=== PATIENT | female | born 1995 | race African-American/Black ===

== ENCOUNTER 2017-07-29 17:18 | Emergency (ER) | payer OTHER ==
[2017-07-29 17:23] VITALS: BP 129/70; PULSE 90; TEMP 98.2; BMI 33.6
== END 2017-07-29 18:10 | disposition left against medical advice (07) ==
LOC: JER 17:18
DX: Z53.21 Procedure and treatment not carried out due to patient leaving prior to being seen by health care provider (principal)
CPT/HCPCS: 99282-25

== ENCOUNTER 2018-06-05 01:26 | Emergency (ER) | payer SELFPAY ==
[2018-06-05 01:48] VITALS: BP 104/72; PULSE 77; TEMP 98.4; BMI 34.0
--- NOTE | 2018-06-05 02:38 | PDOC ---
History of Present Illness - General Chief Complaint: Pain, Acute Stated Complaint: ABDOMINAL PAIN Time Seen by Provider: 06/05/18 01:31 History Source: Patient Exam Limitations: No Limitations - History of Present Illness Travel History: No Initial Comments: 06/05/18 02:35 Best Contact: PCP: "I don't have one" Pmhx: N/A Pshx: N/A Allergies: NKDA FH:0 Social Hx: Cigarettes/ 0 Alcohol/ 0 Drugs/0 LMP:05/16/2018 22-year-old female presents to the ER complaining of right upper quadrant pain. Pain is described as 6/10 dull nonradiating intermittent discomfort without nausea/vomiting, fever/chills/diarrhea, chest pain, neck/back pains, flank pains , urinary symptoms. Pain is exacerbated after eating and alleviated at rest over time. No history of similar symptoms Past History - Past Medical History Allergies/Adverse Reactions: Allergies Allergy/AdvReac Type Severity Reaction Status Date / Time No Known Allergies Allergy Verified 06/05/18 01:45 Home Medications: Ambulatory Orders NK [No Known Home Medication] 07/29/17 Asthma: No Cancer: No Cardiac Disorders: No Diabetes: No HTN: No Seizures: No Thyroid Disease: No - Suicide/Smoking/Psychosocial Hx Smoking History: Never smoked Have you smoked in the past 12 months: No Number of Cigarettes Smoked Daily: 20 Information on smoking cessation initiated: No 'Breaking Loose' booklet given: 07/29/17 Hx Alcohol Use: No Drug/Substance Use Hx: No Substance Use Type: None Hx Substance Use Treatment: No Review of Systems - Review of Systems Able to Perform ROS?: Yes Comments:: 06/05/18 02:37 CONSTITUTIONAL: Absent: fever, chills, diaphoresis, generalized weakness, malaise, loss of appetite HEENT: Absent: rhinorrhea, nasal congestion, throat pain, throat swelling, difficulty swallowing, mouth swelling, ear pain, eye pain, visual Changes CARDIOVASCULAR: Absent: chest pain, loss of consciousness, palpitations, irregular heart rate, peripheral edema RESPIRATORY: Absent: cough, shortness of breath, dyspnea with exertion, orthopnea, wheezing, stridor, hemoptysis GASTROINTESTINAL: +RUQ pain Absent: abdominal distension, nausea, vomiting, diarrhea, constipation, melena , hematochezia GENITOURINARY: Absent: dysuria, frequency, urgency, hesitancy, hematuria, flank pain, genital pain MUSCULOSKELETAL: Absent: myalgia, arthralgia, joint swelling SKIN: Absent: rash, itching, pallor HEMATOLOGIC/IMMUNOLOGIC: Absent: easy bleeding, easy bruising, lymphadenopathy, frequent infections ENDOCRINE: Absent: unexplained weight gain, unexplained weight loss, heat intolerance, cold intolerance NEUROLOGIC: Absent: headache, focal weakness or paresthesias, dizziness, unsteady gait, seizure, mental status changes, bladder or bowel incontinence PSYCHIATRIC: Absent: anxiety, depression, suicidal or homicidal ideation, hallucinations. Is the patient limited Occitan proficient: No *Physical Exam - Vital Signs Last Vital Signs Temp Pulse Resp BP Pulse Ox 98.4 F 77 20 104/72 99 06/05/18 01:45 06/05/18 01:45 06/05/18 01:45 06/05/18 01:45 06/05/18 01:45 - Physical Exam Comments: 06/05/18 02:37 GENERAL: Well developed, well nourished. Awake and alert. No acute distress. HEENT: Normocephalic, atraumatic. PERRLA, EOMI. No conjunctival pallor. Sclera are non- icteric. Moist mucous membranes. Oropharynx is clear. NECK: Supple. Full ROM. No JVD. Carotid pulses 2+ and symmetric, without bruits. No thyromegaly. No lymphadenopathy. CARDIOVASCULAR: Regular rate and rhythm. No murmurs, rubs, or gallops. Distal pulses are 2+ and symmetric. PULMONARY: No evidence of respiratory distress. Lungs clear to auscultation bilaterally. No wheezing, rales or rhonchi. ABDOMINAL: RUQ pain/ +,murphys Soft. Non-distended. No rebound or guarding. No organomegaly. Normoactive bowel sounds. MUSCULOSKELETAL Normal range of motion at all joints. No bony deformities or tenderness. No CVA tenderness. EXTREMITIES: No cyanosis. No clubbing. No edema. No calf tenderness. SKIN: Warm and dry. Normal capillary refill. No rashes. No jaundice. NEUROLOGICAL: Alert, awake, appropriate. Cranial nerves 2-12 intact. No deficits to light touch and temperature in face, upper extremities and lower extremities. No motor deficits in the in face, upper extremities and lower extremities. Normoreflexic in the upper and lower extremities. Normal speech. Toes are down- going bilaterally. Gait is normal without ataxia. PSYCHIATRIC: Cooperative. Good eye contact. Appropriate mood and affect. ED Treatment Course - LABORATORY CBC & Chemistry Diagram: 06/05/18 02:43 06/05/18 02:43 - RADIOLOGY Radiology Studies Ordered: Category Date Time Status ABDOMEN US -LIMITED [US] Stat Ultrasound 06/05/18 01:48 Taken Radiograph Interpretation: 06/05/18 02:38 US limited: Gallbladder is contracted. There is some shadowing calcifications suggesting the presence of stones. The common bile duct is 2 mm which is normal. Impression: Cholelithiasis *DC/Admit/Observation/Transfer Diagnosis at time of Disposition: Cholelithiasis Qualifiers: Cholelithiasis location: gallbladder Cholecystitis presence: without cholecystitis Biliary obstruction: without biliary obstruction Qualified Code(s) : K80.20 - Calculus of gallbladder without cholecystitis without obstruction UTI (urinary tract infection) Qualifiers: Urinary tract infection type: acute cystitis Hematuria presence: without hematuria Qualified Code(s): N30.00 - Acute cystitis without hematuria - Discharge Dispostion Disposition: HOME Condition at time of disposition: Stable Decision to Admit order: No - Referrals Referrals: Rachid Pereira MD [Staff Physician] - - Patient Instructions Printed Discharge Instructions: DI for Gallstones, DI for Urinary Tract Infection (UTI) Additional Instructions: It is very important that you follow with the general surgeon as discussed for your gallstones. Return back to the ER for fever, persistent/severe or worsening pain Macrobid as prescribed - Post Discharge Activity
[2018-06-05 03:04] LABS: EOS % 4.2 % (0-4.5); HEMOGLOBIN 14.9 GM/dL (10.7-15.3); LYMPH % 32.9 % (8-40); MCH 32.7 pg (25.7-33.7); MCHC 33.8 g/dl (32.0-36.0); MEAN CELL VOLUME 96.7 fl (80-96); MEAN PLT VOLUME 7.9 fl (7.5-11.1); MONO % 8.1 % (3.8-10.2); NEUT % 53.8 % (42.8-82.8); PLATELET COUNT 300 K/MM3 (134-434); RBC 4.55 M/mm3 (3.60-5.2); RDW 12.8 % (11.6-15.6); WHITE BLOOD COUNT 10.8 K/mm3 (4.0-10.0)
[2018-06-05 03:28] LABS: ALBUMIN 3.7 g/dl (3.4-5.0); ANION GAP 5 (8-16); BILIRUBIN,TOTAL 0.2 mg/dL (0.2-1.0); BLOOD UREA NITROGEN 8 mg/dL (7-18); CALCIUM 8.6 mg/dL (8.5-10.1); CHLORIDE 105 mmol/L (98-107); CO2 32 mmol/L (21-32); CREATININE 0.9 mg/dL (0.55-1.02); GLUCOSE,RANDOM 97 mg/dL (74-106); POTASSIUM 3.8 mmol/L (3.5-5.1); SGOT/AST 29 U/L (15-37); SGPT/ALT 51 U/L (12-78); SODIUM 142 mmol/L (136-145); TOT PROT 6.9 g/dl (6.4-8.2)
[2018-06-05 03:29] LABS: URINE APPEARANCE CLOUDY; URINE BILIRUBIN NEGATIVE (<2.0 mg/dL); URINE COLOR YELLOW; URINE GLUCOSE (UA) NEGATIVE (NEGATIVE); URINE KETONE NEGATIVE (NEGATIVE); URINE NITRITE POSITIVE (NEGATIVE); URINE PROTEIN NEGATIVE (NEGATIVE); URINE UROBILINOGEN NEGATIVE mg/dL (0.2-1.0)
[2018-06-05 03:29] LABS: ALK PHOS 85 U/L (45-117)
[2018-06-05 03:30] LABS: LIPASE 289 U/L (73-393)
[2018-06-05 03:36] LABS: HCG,QUALITATIVE URINE NEGATIVE; URINE LEUK ESTERASE 2+ (NEGATIVE)
[2018-06-05 03:51] LABS: EPI CELLS FEW /HPF (FEW); URINE BACTERIA MODERATE /hpf (NONE SEEN); URINE MUCUS RARE
== END 2018-06-05 03:54 | disposition home or self-care (01) ==
LOC: JER 01:26
DX: K80.20 Calculus of gallbladder without cholecystitis without obstruction (principal); N30.00 Acute cystitis without hematuria
CPT/HCPCS: 36415; 76705-TC; 80053; 81003; 81015; 83690; 84703; 85025; 99281-25

== ENCOUNTER 2018-06-16 21:06 | Inpatient (IN) | payer OTHER ==
--- NOTE | 2018-06-16 22:40 | PDOC ---
History of Present Illness - General History Source: Patient, Old Records Exam Limitations: No Limitations - History of Present Illness Initial Comments: 06/16/18 22:58 The patient is a 22 year old female, with no significant past medical history, who presents to the ED complaining of abdominal pain. She reports that her pain is located on the right upper quadrant, ranging from mild to moderate, with radiation to her back. She denies any modifying factors. She also reports generalized weakness and chills associated with her chief complaint. She reports that she was in the ED on 06/05/18 for similar symptoms. Was diagnosed with gallstones and a UTI. The patient was unable to get her antibiotics due to an insurance issue. She notes that at the time she was unable to get the gallbladder removed due to her insurance situation. The patient denies chest pain, shortness of breath, headache and dizziness. Denies fever, nausea, vomiting, diarrhea or constipation. Denies dysuria, frequency, urgency and hematuria. LMP: 1-2 Months ago Allergies: None Past surgical history: None reported Social History: Cigarette use (20 daily). Alcohol use. No drug use reported <Dylan Hernandez - Last Filed: 06/16/18 22:58> <Avinash Squires - Last Filed: 06/17/18 01:18> - General Chief Complaint: Pain Stated Complaint: ABD PAIN Time Seen by Provider: 06/16/18 22:39 Past History <Dylan Hernandez - Last Filed: 06/16/18 22:58> - Past Medical History Asthma: No Cancer: No Cardiac Disorders: No Diabetes: No HTN: No Seizures: No Thyroid Disease: No - Suicide/Smoking/Psychosocial Hx Smoking History: Current every day smoker Have you smoked in the past 12 months: Yes Number of Cigarettes Smoked Daily: 20 Information on smoking cessation initiated: No 'Breaking Loose' booklet given: 07/29/17 Hx Alcohol Use: Yes Drug/Substance Use Hx: No Substance Use Type: None Hx Substance Use Treatment: No <Avinash Squires - Last Filed: 06/17/18 01:18> - Past Medical History Allergies/Adverse Reactions: Allergies Allergy/AdvReac Type Severity Reaction Status Date / Time No Known Allergies Allergy Verified 06/05/18 01:45 Home Medications: Ambulatory Orders NK [No Known Home Medication] 06/05/18 Review of Systems - Review of Systems Able to Perform ROS?: Yes Comments:: 06/16/18 22:59 CONSTITUTIONAL: (+) Generalized weakness, Chills. No fever EYES: No visual changes ENT: No ear pain, no sore throat CARDIOVASCULAR: No chest pain, no palpitations RESPIRATORY: No cough, no SOB GI: (+) Abdominal pain. No nausea, no vomiting, no constipation, no diarrhea GENITOURINARY: No dysuria, no frequency, no hematuria MUSKULOSKELETAL: No backpain, no joint pain, no myalgias SKIN: No rash NEURO: No headache <Dylan Hernandez - Last Filed: 06/16/18 22:58> *Physical Exam - Vital Signs Last Vital Signs Temp Pulse Resp BP Pulse Ox 100.1 F H 111 H 18 99/59 98 06/16/18 22:13 06/16/18 22:13 06/16/18 22:13 06/16/18 22:13 06/16/18 22:13 - Physical Exam Comments: 06/16/18 22:59 CONSTITUTIONAL: Well-appearing; well-nourished; in no apparent distress HEAD: Normocephalic; atraumatic EYES: PERRL; EOM intact. No scleral Icterus. ENMT: External appears normal; normal oropharynx NECK: Supple; non-tender; no cervical lymphadenopathy CARD: Normal S1, S2; no murmurs, rubs, or gallops RESP: Normal chest excursion with respiration; breath sounds clear and equal bilaterally; no wheezes, rhonchi, or rales ABD: (+) Positive murphys sign. Right upper quadrant tenderness. Soft, non- distended; no palpable organomegaly, no palpable hernias EXT: Normal ROM in all four extremities; non-tender to palpation; distal pulses intact SKIN: Warm, dry, no rash NEURO: No focal neurological deficiencies. <Dylan Hernandez - Last Filed: 06/16/18 22:58> - Vital Signs Last Vital Signs Temp Pulse Resp BP Pulse Ox 100.1 F H 111 H 18 99/59 98 06/16/18 22:13 06/16/18 22:13 06/16/18 22:13 06/16/18 22:13 08/01/18 22:13 <Avinash Squires - Last Filed: 06/17/18 01:18> ED Treatment Course - LABORATORY CBC & Chemistry Diagram: 06/16/18 23:15 06/16/18 23:15 <Avinash Squires - Last Filed: 06/17/18 01:18> Medical Decision Making - Medical Decision Making 06/17/18 01:16 Patient is a 22-year-old female with history of cholelithiasis, recently diagnosed with nitrite positive UTI who did not fill her antibiotic prescription now returns with right CVA tenderness, low-grade fever and mild leukocytosis with persistent pyuria on evaluation. I suspect clinical pyelonephritis. Right upper quadrant ultrasound shows no evidence of hydronephrosis or obstructive uropathy, gallstones are again noted without evidence of acute cholecystitis. Given low probability of outpatient compliance with antibiotics and severity of the illness, patient will be admitted for IV antibiotic therapy with social work evaluation. <Avinash Squires - Last Filed: 06/17/18 01:18> *DC/Admit/Observation/Transfer - Attestations Scribe Attestion: 06/16/18 22:59 Documentation prepared by Dylan Hernandez, acting as medical recruiter for Avinash Squires MD <Dylan Hernandez - Last Filed: 06/16/18 22:58> - Discharge Dispostion Decision to Admit order: Yes - Attestations Physician Attestion: 06/17/18 01:16 The documentation was prepared by the scribe under my direct supervision. I have reviewed the documentation which correctly represents the findings, medical decision-making and critical action taken by me. <Avinash Squires - Last Filed: 06/17/18 01:18> Diagnosis at time of Disposition: Acute pyelonephritis Cholelithiasis Qualifiers: Cholelithiasis location: gallbladder Cholecystitis presence: without cholecystitis Biliary obstruction: without biliary obstruction Qualified Code(s) : K80.20 - Calculus of gallbladder without cholecystitis without obstruction - Discharge Dispostion Condition at time of disposition: Fair
[2018-06-16 23:37] LABS: BASO % 0.6 % (0-2.0); EOS % 0.3 % (0-4.5); HEMATOCRIT 44.8 % (32.4-45.2); HEMOGLOBIN 15.3 GM/dL (10.7-15.3); LYMPH % 15.1 % (8-40); MCH 32.6 pg (25.7-33.7); MCHC 34.2 g/dl (32.0-36.0); MEAN CELL VOLUME 95.3 fl (80-96); MEAN PLT VOLUME 7.8 fl (7.5-11.1); MONO % 8.1 % (3.8-10.2); NEUT % 75.9 % (42.8-82.8); PLATELET COUNT 425 K/MM3 (134-434); RBC 4.71 M/mm3 (3.60-5.2); RDW 12.9 % (11.6-15.6)
[2018-06-16] MEDS: SODIUM CHLORIDE 1,000 ML IV STA (23:37)
[2018-06-17 00:01] LABS: INR 1.23 (0.83-1.09); PROTHROMBIN TIME (PATIENT) 13.9 SEC (9.7-13.0)
[2018-06-17 00:27] LABS: URINE APPEARANCE SLCLOUDY; URINE BILIRUBIN NEGATIVE (<2.0 mg/dL); URINE COLOR YELLOW; URINE GLUCOSE (UA) NEGATIVE (NEGATIVE); URINE KETONE TRACE (NEGATIVE); URINE NITRITE POSITIVE (NEGATIVE); URINE PROTEIN NEGATIVE (NEGATIVE); URINE UROBILINOGEN NEGATIVE mg/dL (0.2-1.0)
[2018-06-17 00:33] LABS: URINE LEUK ESTERASE 1+ (NEGATIVE)
[2018-06-17] MEDS ORDERED: CEFTRIAXONE 2,000 MG in DEXTROSE 5%-WATER - 50 ML IVPB ONE (00:40)
[2018-06-17] MEDS ORDERED: CEFTRIAXONE 2 GM/100 ML BAG IVPB ONE (00:42)
[2018-06-17 00:43] LABS: ALBUMIN 4.1 g/dl (3.4-5.0); ANION GAP 7 (8-16); BILIRUBIN,TOTAL 0.4 mg/dL (0.2-1.0); BLOOD UREA NITROGEN 5 mg/dL (7-18); CALCIUM 9.1 mg/dL (8.5-10.1); CHLORIDE 104 mmol/L (98-107); CO2 27 mmol/L (21-32); CREATININE 0.9 mg/dL (0.55-1.02); GLUCOSE,RANDOM 86 mg/dL (74-106); POTASSIUM 3.7 mmol/L (3.5-5.1); SGOT/AST 23 U/L (15-37); SGPT/ALT 46 U/L (12-78); SODIUM 138 mmol/L (136-145); TOT PROT 7.8 g/dl (6.4-8.2)
[2018-06-17 00:44] LABS: ALK PHOS 96 U/L (45-117)
[2018-06-17 01:01] LABS: EPI CELLS RARE /HPF (FEW); URINE BACTERIA RARE /hpf (NONE SEEN); URINE MUCUS MANY
[2018-06-17] MEDS ORDERED: SODIUM CHLORIDE 1,000 ML IV SCH (01:15)
--- NOTE | 2018-06-17 01:42 | HP ---
CHIEF COMPLAINT: abdominal pain PCP: none HISTORY OF PRESENT ILLNESS: 22 year old female without pmh presents for RUQ abdominal pain for 10 days that radiates to her back. She reports that she also experienced weakness and chills at home. Pain is at a 4/10 currently. Denies nausea, vomiting, diarrhea, chest pain, SOB. Patient reports that she was seen for UTI on 06/06 but was unable to get medications for antibiotic treatment and thus the pain got worse. She was also told she had gallstones on the previous admission. Reports frequent UTIs ( once a month) for which she gets treated with antibiotics. Has never had a workup to determine cause of frequent UTIs. Sexually active 1 male partner, no contraception. Reports abnormal menstrual cycles, last one was early April. ER course was notable for: (1) UA + (2) Abd US + for (3) Recent Travel: PAST MEDICAL HISTORY: none PAST SURGICAL HISTORY: none Social History: Smokin ppd Alcohol: weekends Drugs: denies Family History: none Allergies No Known Allergies Allergy (Verified 06/05/18 01:45) HOME MEDICATIONS: Home Medications Medication Instructions Recorded NK [No Known Home Medication] 06/05/18 REVIEW OF SYSTEMS CONSTITUTIONAL: Absent: fever, chills, diaphoresis, generalized weakness, malaise, loss of appetite, weight change HEENT: Absent: rhinorrhea, nasal congestion, throat pain, throat swelling, difficulty swallowing, mouth swelling, ear pain, eye pain, visual changes CARDIOVASCULAR: Absent: chest pain, syncope, palpitations, irregular heart rate, lightheadedness , peripheral edema RESPIRATORY: Absent: cough, shortness of breath, dyspnea with exertion, orthopnea, wheezing, stridor, hemoptysis GASTROINTESTINAL: abdominal pain Absent: abdominal distension, nausea, vomiting, diarrhea, constipation, melena , hematochezia GENITOURINARY: flank pain Absent: dysuria, frequency, urgency, hesitancy, hematuria, genital pain MUSCULOSKELETAL: Absent: myalgia, arthralgia, joint swelling, back pain, neck pain SKIN: Absent: rash, itching, pallor HEMATOLOGIC/IMMUNOLOGIC: Absent: easy bleeding, easy bruising, lymphadenopathy, frequent infections ENDOCRINE: Absent: unexplained weight gain, unexplained weight loss, heat intolerance, cold intolerance NEUROLOGIC: Absent: headache, focal weakness or paresthesias, dizziness, unsteady gait, seizure, mental status changes, bladder or bowel incontinence PSYCHIATRIC: Absent: anxiety, depression, suicidal or homicidal ideation, hallucinations. PHYSICAL EXAMINATION Vital Signs - 24 hr 06/16/18 22:13 Temperature 100.1 F H Pulse Rate 111 H Respiratory 18 Rate Blood Pressure 99/59 O2 Sat by Pulse 98 Oximetry (%) GENERAL: A&Ox3, no acute distress EYES: PERRLA, EOMI ENT: Moist mucus membranes NECK: No JVD LUNGS: CTA, no wheezes HEART: RRR, no murmurs ABDOMEN: Soft, + tenderness in RUQ MUSCULOSKELETAL: R sided flank tenderness EXTREMITIES: 2+ pulses, no edema. NEUROLOGICAL: Cranial nerves II-XII intact. Laboratory Results - last 24 hr 06/16/18 06/16/18 06/16/18 23:15 23:15 23:15 WBC 13.0 H RBC 4.71 Hgb 15.3 Hct 44.8 MCV 95.3 MCH 32.6 MCHC 34.2 RDW 12.9 Plt Count 425 D MPV 7.8 Absolute Neuts (auto) 9.8 Neutrophils % 75.9 D Lymphocytes % 15.1 D Monocytes % 8.1 Eosinophils % 0.3 D Basophils % 0.6 Nucleated RBC % 0 PT with INR 13.90 H INR 1.23 H Sodium Potassium Chloride Carbon Dioxide Anion Gap BUN Creatinine Creat Clearance w eGFR Random Glucose Calcium Total Bilirubin AST ALT Alkaline Phosphatase Total Protein Albumin Serum , Qual Negative Urine Color Urine Appearance Urine pH Ur Specific [place] Urine Protein Urine Glucose (UA) Urine Ketones Urine Blood Urine Nitrite Urine Bilirubin Urine Urobilinogen Ur Leukocyte Esterase Urine WBC (Auto) Urine RBC (Auto) Ur Epithelial Cells Urine Bacteria Urine Mucus 06/16/18 06/16/18 23:15 23:45 WBC RBC Hgb Hct MCV MCH MCHC RDW Plt Count MPV Absolute Neuts (auto) Neutrophils % Lymphocytes % Monocytes % Eosinophils % Basophils % Nucleated RBC % PT with INR INR Sodium 138 Potassium 3.7 Chloride 104 Carbon Dioxide 27 Anion Gap 7 L BUN 5 L Creatinine 0.9 Creat Clearance w eGFR > 60 Random Glucose 86 Calcium 9.1 Total Bilirubin 0.4 AST 23 ALT 46 Alkaline Phosphatase 96 D Total Protein 7.8 Albumin 4.1 Serum , Qual Urine Color Yellow Urine Appearance Slcloudy Urine pH 6.0 Ur Specific [place] 1.015 Urine Protein Negative Urine Glucose (UA) Negative Urine Ketones Trace H Urine Blood 2+ H Urine Nitrite Positive Urine Bilirubin Negative Urine Urobilinogen Negative Ur Leukocyte Esterase 1+ H Urine WBC (Auto) 51 Urine RBC (Auto) 20 Ur Epithelial Cells Rare Urine Bacteria Rare Urine Mucus Many US GALLBLADDER: IMPRESSION: Mildly fatty and borderline enlarged liver. Multiple gallstones without definite secondary findings of cholecystitis. ASSESSMENT/PLAN: 22 year old female without pmh presents for RUQ abdominal pain and flank pain, admitted for the treatment of pyelonephritis #Pyelonephritis: -UA + for UTI -f/u Ucx, Blood Cx -tylenol for fever -NS @ 100cc/hr -Ceftriaxone 2gm IV -recommend workup for frequent UTIs as an outpatient #Cholelithiasis: US positive for gallstones -not an acute condition, will recommend outpatient followup #Irregular menstrual periods: LKMP May 05 -Tungsten Tender consult appreciated #FEN -NS @ 100cc/hr -lytes wnl -regular diet #Prophylaxis -early ambulation #Disposition -admit med-surg Visit type - Emergency Visit Emergency Visit: Yes ED Registration Date: 06/17/18 Care time: The patient presented to the Emergency Department on the above date and was hospitalized for further evaluation of their emergent condition. - New Patient This patient is new to me today: Yes Date on this admission: 06/17/18 - Critical Care Critical Care patient: No Hospitalist Screening - Colonoscopy Questionnaire Colonoscopy Questionnaire: Colonoscopy Questionnaire - Patient: 50 - 75 years old and never had a screening colonoscopy: No History of colon or rectal polyps, or CA: No History of IBD, Crohn's disease or UC: No History of abdominal radiation therapy as a child: No - Relative: 1 with colon or rectal CA, or polyps at age 60 or younger: Unknown Colon or rectal CA diagnosed at age 45 or younger: Unknown Multiple relatives with colon or rectal CA: Unknown - Outcome: Screening Result: Negative Screen
[2018-06-17] MEDS: ACETAMINOPHEN 325 MG TABLET (FP) PO PRN ×3 (02:22→18:14)
--- NOTE | 2018-06-17 02:23 | PN ---
Teaching Attending Note Name of Resident: Matthew Stock ATTENDING PHYSICIAN STATEMENT I saw and evaluated the patient. I reviewed the resident's note and discussed the case with the resident. I agree with the resident's findings and plan as documented. SUBJECTIVE: Patient is a 22 year old woman with past medical history of recurrent UTI and irregular menses, who presents to the ER complaining of abdominal pain. She reports that her pain is located on the right upper quadrant, ranging from mild to moderate, with radiation to her back. She denies any modifying factors. She also reports generalized weakness and chills associated with her chief complaint. She reports that she was in the ER on 06/05/18 for similar symptoms. Was diagnosed with gallstones and a UTI. The patient was unable to get her antibiotics due to lack of health insurance. She notes that at the time she was unable to get the gallbladder removed due to her insurance situation?. Has two children, is unemployed, smokes 1 PPD and has irregular long periods. LMP May 05 to . OBJECTIVE: Obese, alert and in no acute distress Vital Signs Period Temp Pulse Resp BP Sys/Nguyen Pulse Ox Last 24 Hr 100.1 F 111 18 99/59 98 HEENT: No Jaundice, eye redness or discharge, PERRLA, EOMI. Normocephalic, atraumatic. External ears are normal and hearing is grossly intact. No nasal discharge. Neck: Supple, nontender. No palpable adenopathy or thyromegaly. No JVD Chest: Good effort. Clear to auscultation and percussion. Heart: Regular. No S3, rub or murmur Abdomen: Not distended, soft, right CVAT and no HSM. No rebound or guarding. Normoactive bowel sounds. Ext: Peripheral pulses intact. No leg edema. Skin: Warm and dry. No petechiae, rash or ecchymosis. Neuro: Alert. Oriented x3. CN 2-12 grossly intact. Sensation grossly intact in all four extremities and DTR are symmetric. ASSESSMENT AND PLAN: 1. Pyelonephritis - Being treated with IV Rocephin 2 gm q 24 hours and IV NS. Monitor closely for low BP. Needs further workup to search for risk factor for recurrent UTIs. [employer] PIPE consult for irregular periods 2. Obesity - Will provide patient all the necessary assistance, counseling and positive reinforcement to facilitate weight loss. Consult materials planning manager. 3. Tobacco Use We will provide patient all the necessary assistance to facilitate smoking cessation and prescribe Nicotine patch. 4. DVT prophylaxis - Heparin 5000u sq tid. 5. Advance directives - Full code
[2018-06-17 07:34] LABS: HEMATOCRIT 39.6 % (32.4-45.2); HEMOGLOBIN 13.7 GM/dL (10.7-15.3); MCH 33.2 pg (25.7-33.7); MCHC 34.7 g/dl (32.0-36.0); MEAN CELL VOLUME 95.8 fl (80-96); PLATELET COUNT 342 K/MM3 (134-434); RBC 4.13 M/mm3 (3.60-5.2); RDW 12.3 % (11.6-15.6); WHITE BLOOD COUNT 10.9 K/mm3 (4.0-10.0)
[2018-06-17 08:07] LABS: CHLORIDE 107 mmol/L (98-107); POTASSIUM 3.6 mmol/L (3.5-5.1); SODIUM 140 mmol/L (136-145)
[2018-06-17 08:12] LABS: ANION GAP 10 (8-16); BLOOD UREA NITROGEN 5 mg/dL (7-18); CALCIUM 8.2 mg/dL (8.5-10.1); CO2 23 mmol/L (21-32); CREATININE 0.8 mg/dL (0.55-1.02); GLUCOSE,RANDOM 75 mg/dL (74-106); MAGNESIUM 1.8 mg/dL (1.8-2.4); PHOSPHOROUS 4.2 mg/dL (2.5-4.9)
--- NOTE | 2018-06-17 08:59 | PN ---
Teaching Attending Note Name of Resident: Marichuy Ma ATTENDING PHYSICIAN STATEMENT I saw and evaluated the patient. I reviewed the resident's note and discussed the case with the resident. I agree with the resident's findings and plan as documented. SUBJECTIVE: Patient is comfortable with no acute distress, c/o having l back pain. OBJECTIVE: Vital Signs Temperature 99.3 F 06/17/18 06:00 Pulse Rate 84 06/17/18 06:00 Respiratory Rate 16 06/17/18 06:00 Blood Pressure 97/59 06/17/18 06:00 O2 Sat by Pulse Oximetry (%) 100 06/17/18 01:26 CBCD WBC 10.9 K/mm3 (4.0-10.0) H 06/17/18 07:00 RBC 4.13 M/mm3 (3.60-5.2) 06/17/18 07:00 Hgb 13.7 GM/dL (10.7-15.3) 06/17/18 07:00 Hct 39.6 % (32.4-45.2) 06/17/18 07:00 MCV 95.8 fl (80-96) 06/17/18 07:00 MCHC 34.7 g/dl (32.0-36.0) 06/17/18 07:00 RDW 12.3 % (11.6-15.6) 06/17/18 07:00 Plt Count 342 K/MM3 (134-434) 06/17/18 07:00 MPV 8.0 fl (7.5-11.1) 06/17/18 07:00 CMP Sodium 140 mmol/L (136-145) 06/17/18 07:00 Potassium 3.6 mmol/L (3.5-5.1) 06/17/18 07:00 Chloride 107 mmol/L (98-107) 06/17/18 07:00 Carbon Dioxide 23 mmol/L (21-32) 06/17/18 07:00 Anion Gap 10 (8-16) 06/17/18 07:00 BUN 5 mg/dL (7-18) L 06/17/18 07:00 Creatinine 0.8 mg/dL (0.55-1.02) 06/17/18 07:00 Creat Clearance w eGFR > 60 (>60) 06/17/18 07:00 Random Glucose 75 mg/dL (74-106) 06/17/18 07:00 Calcium 8.2 mg/dL (8.5-10.1) L 06/17/18 07:00 Total Bilirubin 0.4 mg/dL (0.2-1.0) 06/16/18 23:15 AST 23 U/L (15-37) 06/16/18 23:15 ALT 46 U/L (12-78) 06/16/18 23:15 Alkaline Phosphatase 96 U/L (45-117) D 06/16/18 23:15 Total Protein 7.8 g/dl (6.4-8.2) 06/16/18 23:15 Albumin 4.1 g/dl (3.4-5.0) 06/16/18 23:15 Current Medications Generic Name Dose Route Start Last Admin Trade Name Freq PRN Reason Stop Dose Admin Acetaminophen 650 mg 06/17/18 01:03 06/17/18 02:22 Tylenol - PO 650 mg Q4H PRN Administration PAIN Sodium Chloride 1,000 mls @ 100 mls/hr 06/17/18 01:15 06/17/18 01:54 Normal Saline - IV 06/17/18 11:14 100 mls/hr ASDIR KHANH Administration Ceftriaxone Sodium 2 gm/ 100 mls @ 200 mls/hr 06/17/18 10:00 Dextrose IVPB DAILY KHANH Protocol Polyethylene Glycol 17 gm 06/17/18 10:00 Miralax (For Daily Use) - PO DAILY KHANH Home Medications Medication Instructions Recorded NK [No Known Home Medication] 06/05/18 Urine Test Results Urine Color Yellow 06/16/18 23:45 Urine Appearance Slcloudy 06/16/18 23:45 Urine pH 6.0 (5.0-8.0) 06/16/18 23:45 Ur Specific [place] 1.015 (1.001-1.035) 06/16/18 23:45 Urine Protein Negative (NEGATIVE) 06/16/18 23:45 Urine Glucose (UA) Negative (NEGATIVE) 06/16/18 23:45 Urine Ketones Trace (NEGATIVE) H 06/16/18 23:45 Urine Blood 2+ (NEGATIVE) H 06/16/18 23:45 Urine Nitrite Positive (NEGATIVE) 06/16/18 23:45 Urine Bilirubin Negative (<2.0 mg/dL) 06/16/18 23:45 Ur Leukocyte Esterase 1+ (NEGATIVE) H 06/16/18 23:45 Ur Epithelial Cells Rare /HPF (FEW) 06/16/18 23:45 Urine Bacteria Rare /hpf (NONE SEEN) 06/16/18 23:45 Urine Mucus Many 06/16/18 23:45 PE: per resident's note positive for CVA tenderness US GALLBLADDER: Mildly fatty and borderline enlarged liver. Multiple gallstones without definite secondary findings of cholecystitis. ASSESSMENT AND PLAN: Patient is 22 year old female with no pmhx presents for RUQ abdominal pain and flank pain, admitted for the treatment of pyelonephritis #Acute Pyelonephritis:on IV antibiotic Rocephin 2gm daily , will add Bacid to her regimen #Cholelithiasis: US positive for gallstones, no madiha at this time , follow up with a surgeon as an outpatient #Irregular menstrual periods: LKMP May 05, Grab Operator consulted as per night team. #Prophylaxis: early ambulation , scds
[2018-06-17] MEDS ORDERED: DEXTROSE 5%-WATER 100 ML IVPB ONE (09:08)
[2018-06-17] MEDS: CEFTRIAXONE 2 GM in DEXTROSE 5%-WATER 100 ML IVPB SCH (09:12)
[2018-06-17] MEDS: POLYETHYLENE GLYCOL 3350 119 GM BTL PO SCH (09:15)
--- NOTE | 2018-06-17 10:45 | PN ---
Physical Exam: SUBJECTIVE: Patient is a 22 y/o female with a history of recurrent UTI's who presents with pyelonephritis. She complains of some back pain but reports its getting better. She has no other acute complaints. TMAX of 102.6 overnight. OBJECTIVE: Vital Signs Period Temp Pulse Resp BP Sys/Nguyen Pulse Ox Last 24 Hr 99.3 F-102.6 F 83-111 16-18 97-131/59-64 98-100 GENERAL: The patient is awake, alert, and fully oriented, in no acute distress. HEAD: Normal with no signs of trauma. EYES: PERRL, extraocular movements intact, LUNGS: Breath sounds equal, clear to auscultation bilaterally. HEART: Regular rate and rhythm. ABDOMEN: Soft, nontender, nondistended, normoactive bowel sounds, R CVA tenderness EXTREMITIES: 2+ pulses, warm, well-perfused, no edema. SKIN: Warm, dry, normal turgor, no rashes or lesions noted Laboratory Results - last 24 hr 06/16/18 06/16/18 06/16/18 23:15 23:15 23:15 WBC 13.0 H RBC 4.71 Hgb 15.3 Hct 44.8 MCV 95.3 MCH 32.6 MCHC 34.2 RDW 12.9 Plt Count 425 D MPV 7.8 Absolute Neuts (auto) 9.8 Neutrophils % 75.9 D Lymphocytes % 15.1 D Monocytes % 8.1 Eosinophils % 0.3 D Basophils % 0.6 Nucleated RBC % 0 PT with INR 13.90 H INR 1.23 H Sodium Potassium Chloride Carbon Dioxide Anion Gap BUN Creatinine Creat Clearance w eGFR Random Glucose Calcium Phosphorus Magnesium Total Bilirubin AST ALT Alkaline Phosphatase Total Protein Albumin Serum , Qual Negative Urine Color Urine Appearance Urine pH Ur Specific [place] Urine Protein Urine Glucose (UA) Urine Ketones Urine Blood Urine Nitrite Urine Bilirubin Urine Urobilinogen Ur Leukocyte Esterase Urine WBC (Auto) Urine RBC (Auto) Ur Epithelial Cells Urine Bacteria Urine Mucus Blood Type Antibody Screen 06/16/18 06/16/18 06/16/18 23:15 23:15 23:45 WBC RBC Hgb Hct MCV MCH MCHC RDW Plt Count MPV Absolute Neuts (auto) Neutrophils % Lymphocytes % Monocytes % Eosinophils % Basophils % Nucleated RBC % PT with INR INR Sodium 138 Potassium 3.7 Chloride 104 Carbon Dioxide 27 Anion Gap 7 L BUN 5 L Creatinine 0.9 Creat Clearance w eGFR > 60 Random Glucose 86 Calcium 9.1 Phosphorus Magnesium Total Bilirubin 0.4 AST 23 ALT 46 Alkaline Phosphatase 96 D Total Protein 7.8 Albumin 4.1 Serum , Qual Urine Color Yellow Urine Appearance Slcloudy Urine pH 6.0 Ur Specific [place] 1.015 Urine Protein Negative Urine Glucose (UA) Negative Urine Ketones Trace H Urine Blood 2+ H Urine Nitrite Positive Urine Bilirubin Negative Urine Urobilinogen Negative Ur Leukocyte Esterase 1+ H Urine WBC (Auto) 51 Urine RBC (Auto) 20 Ur Epithelial Cells Rare Urine Bacteria Rare Urine Mucus Many Blood Type B POSITIVE Antibody Screen Negative 06/17/18 06/17/18 07:00 07:00 WBC 10.9 H RBC 4.13 Hgb 13.7 Hct 39.6 MCV 95.8 MCH 33.2 MCHC 34.7 RDW 12.3 Plt Count 342 MPV 8.0 Absolute Neuts (auto) Neutrophils % Lymphocytes % Monocytes % Eosinophils % Basophils % Nucleated RBC % PT with INR INR Sodium 140 Potassium 3.6 Chloride 107 Carbon Dioxide 23 Anion Gap 10 BUN 5 L Creatinine 0.8 Creat Clearance w eGFR > 60 Random Glucose 75 Calcium 8.2 L Phosphorus 4.2 Magnesium 1.8 Total Bilirubin AST ALT Alkaline Phosphatase Total Protein Albumin Serum , Qual Urine Color Urine Appearance Urine pH Ur Specific [place] Urine Protein Urine Glucose (UA) Urine Ketones Urine Blood Urine Nitrite Urine Bilirubin Urine Urobilinogen Ur Leukocyte Esterase Urine WBC (Auto) Urine RBC (Auto) Ur Epithelial Cells Urine Bacteria Urine Mucus Blood Type Antibody Screen Active Medications Generic Name Dose Route Start Last Admin Trade Name Freq PRN Reason Stop Dose Admin Acetaminophen 650 mg 06/17/18 01:03 06/17/18 09:11 Tylenol - PO 650 mg Q4H PRN Administration PAIN Sodium Chloride 1,000 mls @ 100 mls/hr 06/17/18 01:15 06/17/18 01:54 Normal Saline - IV 06/17/18 11:14 100 mls/hr ASDIR KHANH Administration Ceftriaxone Sodium 2 gm/ 100 mls @ 200 mls/hr 06/17/18 10:00 06/17/18 09:12 Dextrose IVPB 200 mls/hr DAILY KHANH Administration Protocol Polyethylene Glycol 17 gm 06/17/18 10:00 06/17/18 09:15 Miralax (For Daily Use) - PO Not Given DAILY KHANH ASSESSMENT/PLAN: Patient is a 22 y/o female with a history of recurrent UTI's who presents with pyelonephritis. # Pyelonephritis - UA: 1+ LE, 51 WBC - Continue Ceftriaxone 2gm IV - f/u UCx, BCX - currently afebrile - acetaminophen for fever #Cholelithiasis; history - not acute #Ireegular menstrual periods - f/u PORT PATROL OFFICER consult - negative serum #PPX - early ambulation FEN - NS @ 100 - regular diet Dispo: f/u culture sensitivities, treatment for 14 days Visit type - Emergency Visit Emergency Visit: No - New Patient This patient is new to me today: No - Critical Care Critical Care patient: No
[2018-06-17] MEDS: SODIUM CHLORIDE 1,000 ML IV STA (13:11)
[2018-06-17] MEDS ORDERED: traMADol HCL 50 MG TABLET PO ONE (15:00)
[2018-06-17] MEDS ORDERED: traMADol HCL 50 MG TABLET PO PRN (17:36)
[2018-06-17] MEDS: LACTOBACILLUS ACIDOPHILUS 1 TABLET PO SCH (22:04)
[2018-06-18] MEDS: ACETAMINOPHEN 325 MG TABLET (FP) PO PRN ×2 (01:50→13:00)
[2018-06-18 08:24] LABS: HEMATOCRIT 39.4 % (32.4-45.2); HEMOGLOBIN 13.6 GM/dL (10.7-15.3); MCHC 34.5 g/dl (32.0-36.0); MEAN CELL VOLUME 95.6 fl (80-96); MEAN PLT VOLUME 7.9 fl (7.5-11.1); PLATELET COUNT 331 K/MM3 (134-434); RBC 4.12 M/mm3 (3.60-5.2); RDW 12.5 % (11.6-15.6)
[2018-06-18 09:24] VITALS: BMI 31.9
[2018-06-18] MEDS ORDERED: PT OWN MED DRAWER 7, Y5N ONE (10:01)
[2018-06-18] MEDS ORDERED: DEXTROSE 5%-WATER 100 ML IVPB ONE (10:02)
[2018-06-18] MEDS: CEFTRIAXONE 2 GM in DEXTROSE 5%-WATER 100 ML IVPB SCH (10:11)
[2018-06-18] MEDS: LACTOBACILLUS ACIDOPHILUS 1 TABLET PO SCH ×2 (10:12→21:32)
[2018-06-18] MEDS: POLYETHYLENE GLYCOL 3350 119 GM BTL PO SCH ×2 (10:12→15:20)
--- NOTE | 2018-06-18 14:11 | PN ---
Physical Exam: SUBJECTIVE: Patient is a 22 y/o female with a history of recurrent UTI's who presents with pyelonephritis. She complains of some back pain but reports its getting better. She has no other acute complaints. Afebrile overnight. OBJECTIVE: Vital Signs Period Temp Pulse Resp BP Sys/Nguyen Pulse Ox Last 24 Hr 98.2 F-102.7 F 74-84 18-20 99-115/59-73 100-100 GENERAL: The patient is awake, alert, and fully oriented, in no acute distress. HEAD: Normal with no signs of trauma. EYES: PERRL, extraocular movements intact, LUNGS: Breath sounds equal, clear to auscultation bilaterally. HEART: Regular rate and rhythm. ABDOMEN: Soft, nontender, nondistended, normoactive bowel sounds, R CVA tenderness EXTREMITIES: 2+ pulses, warm, well-perfused, no edema. SKIN: Warm, dry, normal turgor, no rashes or lesions noted Laboratory Results - last 24 hr 06/18/18 07:00 WBC 10.0 RBC 4.12 Hgb 13.6 Hct 39.4 MCV 95.6 MCH 33.0 MCHC 34.5 RDW 12.5 Plt Count 331 MPV 7.9 Active Medications Generic Name Dose Route Start Last Admin Trade Name Freq PRN Reason Stop Dose Admin Acetaminophen 650 mg 06/17/18 17:37 06/18/18 13:00 Tylenol - PO 650 mg Q4H PRN Administration PAIN LEVEL 1-5 Ceftriaxone Sodium 2 gm/ 100 mls @ 200 mls/hr 06/17/18 10:00 06/18/18 10:11 Dextrose IVPB 200 mls/hr DAILY KHANH Administration Protocol Metronidazole 500 mg in 100 mls @ 100 mls/hr 06/17/18 12:00 06/18/18 09:11 Flagyl 500mg Premixed Ivpb - IVPB 100 mls/hr Q8H-IV KHANH Administration Lactobacillus Acidophilus 1 tab 06/17/18 22:00 06/18/18 10:12 Bacid - PO 1 tab BID KHANH Administration Polyethylene Glycol 17 gm 06/17/18 10:00 06/18/18 10:12 Miralax (For Daily Use) - PO Not Given DAILY KHANH Tramadol HCl 25 mg 06/18/18 07:19 Ultram - PO Q6H PRN PAIN LEVEL 6-10 ASSESSMENT/PLAN: Patient is a 22 y/o female with a history of recurrent UTI's who presents with pyelonephritis. # Pyelonephritis - UA: 1+ LE, 51 WBC - Continue Ceftriaxone 2gm IV ( day 2) and Metronidazole 500 mg ( day 2) - BCX negative - Ucx: non lactose fermenting gram negative - currently afebrile - acetaminophen for fever - Tramadol 25 mg q 6h prn #Cholelithiasis; history - not acute #Ireegular menstrual periods - DOUGHNUT MACHINE OPERATOR HELPER consult; per Dr. Cox nothing to do at this moment - negative serum #PPX - early ambulation FEN - NS @ 100 - regular diet Dispo: f/u culture sensitivities, treatment for 14 days Visit type - Emergency Visit Emergency Visit: No - New Patient This patient is new to me today: No - Critical Care Critical Care patient: No
--- NOTE | 2018-06-18 17:41 | PN ---
Teaching Attending Note Name of Resident: Marichuy Ma ATTENDING PHYSICIAN STATEMENT I saw and evaluated the patient. I reviewed the resident's note and discussed the case with the resident. I agree with the resident's findings and plan as documented. SUBJECTIVE: Better with no acute distress. OBJECTIVE: Vital Signs Temperature 98.1 F 06/18/18 14:55 Pulse Rate 76 06/18/18 14:55 Respiratory Rate 18 06/18/18 14:55 Blood Pressure 106/62 06/18/18 14:55 O2 Sat by Pulse Oximetry (%) 100 06/18/18 09:00 CBCD WBC 10.0 K/mm3 (4.0-10.0) 06/18/18 07:00 RBC 4.12 M/mm3 (3.60-5.2) 06/18/18 07:00 Hgb 13.6 GM/dL (10.7-15.3) 06/18/18 07:00 Hct 39.4 % (32.4-45.2) 06/18/18 07:00 MCV 95.6 fl (80-96) 06/18/18 07:00 MCHC 34.5 g/dl (32.0-36.0) 06/18/18 07:00 RDW 12.5 % (11.6-15.6) 06/18/18 07:00 Plt Count 331 K/MM3 (134-434) 06/18/18 07:00 MPV 7.9 fl (7.5-11.1) 06/18/18 07:00 CMP Sodium 140 mmol/L (136-145) 06/17/18 07:00 Potassium 3.6 mmol/L (3.5-5.1) 06/17/18 07:00 Chloride 107 mmol/L (98-107) 06/17/18 07:00 Carbon Dioxide 23 mmol/L (21-32) 06/17/18 07:00 Anion Gap 10 (8-16) 06/17/18 07:00 BUN 5 mg/dL (7-18) L 06/17/18 07:00 Creatinine 0.8 mg/dL (0.55-1.02) 06/17/18 07:00 Creat Clearance w eGFR > 60 (>60) 06/17/18 07:00 Random Glucose 75 mg/dL (74-106) 06/17/18 07:00 Calcium 8.2 mg/dL (8.5-10.1) L 06/17/18 07:00 Total Bilirubin 0.4 mg/dL (0.2-1.0) 06/16/18 23:15 AST 23 U/L (15-37) 06/16/18 23:15 ALT 46 U/L (12-78) 06/16/18 23:15 Alkaline Phosphatase 96 U/L (45-117) D 06/16/18 23:15 Total Protein 7.8 g/dl (6.4-8.2) 06/16/18 23:15 Albumin 4.1 g/dl (3.4-5.0) 06/16/18 23:15 Microbiology 06/16/18 23:45 Urine - Urine Clean Catch Urine Culture - Preliminary Non Lactose Fermenting Gnb 06/16/18 23:15 Blood - Peripheral Venous Blood Culture - Preliminary NO GROWTH OBTAINED AFTER 24 HOURS, INCUBATION TO CONTINUE FOR 4 DAYS. 06/16/18 23:15 Blood - Peripheral Venous Blood Culture - Preliminary NO GROWTH OBTAINED AFTER 24 HOURS, INCUBATION TO CONTINUE FOR 4 DAYS. PE: per resident's note less CVA tenderness US GALLBLADDER: Mildly fatty and borderline enlarged liver. Multiple gallstones without definite secondary findings of cholecystitis. ASSESSMENT AND PLAN: Patient is 22 year old female with no pmhx presents for RUQ abdominal pain and flank pain, admitted for the treatment of pyelonephritis #Acute Pyelonephritis:on IV antibiotic Rocephin 2gm daily continue , Culture growing GNB on Rocephin , Cultuere growing GNB will wait for the official culture #Cholelithiasis: US positive for gallstones, no pain at this time , follow up with a surgeon as an outpatient #Irregular menstrual periods: [facility] May 05, Control System Computer Scientist consulted and seen the patient , nothing to do. #Prophylaxis: early ambulation , scds
[2018-06-18] MEDS: traMADol HCL 50 MG TABLET PO PRN (21:32)
[2018-06-19] MEDS: traMADol HCL 50 MG TABLET PO PRN (05:45)
[2018-06-19] MEDS ORDERED: DEXTROSE 5%-WATER 100 ML IVPB ONE (10:08)
[2018-06-19] MEDS: LACTOBACILLUS ACIDOPHILUS 1 TABLET PO SCH (10:11)
[2018-06-19] MEDS: POLYETHYLENE GLYCOL 3350 119 GM BTL PO SCH (10:12)
[2018-06-19] MEDS: CEFTRIAXONE 2 GM in DEXTROSE 5%-WATER 100 ML IVPB SCH (11:09)
--- NOTE | 2018-06-19 11:55 | DS ---
Physical Exam: SUBJECTIVE: Patient seen and examined Patient is feeling better with no acute distress. No nausea or vomiting. OBJECTIVE: Vital Signs Temperature 98.7 F 06/19/18 06:00 Pulse Rate 70 06/19/18 06:00 Respiratory Rate 20 06/19/18 06:00 Blood Pressure 103/58 06/19/18 06:00 O2 Sat by Pulse Oximetry (%) 97 06/18/18 20:58 PHYSICAL EXAM GENERAL: The patient is awake, alert, and fully oriented, in no acute distress. HEAD: Normal with no signs of trauma. EYES: PERRL, extraocular movements intact, sclera anicteric, conjunctiva clear. ENT: Ears normal, oropharynx clear without exudates, moist mucous membranes. NECK: Trachea midline, full range of motion, supple. LUNGS: Breath sounds equal, clear to auscultation bilaterally, no wheezes, no crackles, no accessory muscle use. HEART: Regular rate and rhythm, S1, S2 without murmur, rub or gallop. ABDOMEN: Soft, nontender, nondistended, normoactive bowel sounds, no guarding, no rebound, no hepatosplenomegaly, no masses. EXTREMITIES: 2+ pulses, warm, well-perfused, no edema. NEUROLOGICAL: Cranial nerves II through XII grossly intact. Normal speech, gait is steady PSYCH: Normal mood, normal affect. SKIN: Warm, dry, normal turgor, no rashes or lesions noted. LABS CBCD WBC 10.0 K/mm3 (4.0-10.0) 06/18/18 07:00 RBC 4.12 M/mm3 (3.60-5.2) 06/18/18 07:00 Hgb 13.6 GM/dL (10.7-15.3) 06/18/18 07:00 Hct 39.4 % (32.4-45.2) 06/18/18 07:00 MCV 95.6 fl (80-96) 06/18/18 07:00 MCHC 34.5 g/dl (32.0-36.0) 06/18/18 07:00 RDW 12.5 % (11.6-15.6) 06/18/18 07:00 Plt Count 331 K/MM3 (134-434) 06/18/18 07:00 MPV 7.9 fl (7.5-11.1) 06/18/18 07:00 CMP Sodium 140 mmol/L (136-145) 06/17/18 07:00 Potassium 3.6 mmol/L (3.5-5.1) 06/17/18 07:00 Chloride 107 mmol/L (98-107) 06/17/18 07:00 Carbon Dioxide 23 mmol/L (21-32) 06/17/18 07:00 Anion Gap 10 (8-16) 06/17/18 07:00 BUN 5 mg/dL (7-18) L 06/17/18 07:00 Creatinine 0.8 mg/dL (0.55-1.02) 06/17/18 07:00 Creat Clearance w eGFR > 60 (>60) 06/17/18 07:00 Random Glucose 75 mg/dL (74-106) 06/17/18 07:00 Calcium 8.2 mg/dL (8.5-10.1) L 06/17/18 07:00 Total Bilirubin 0.4 mg/dL (0.2-1.0) 06/16/18 23:15 AST 23 U/L (15-37) 06/16/18 23:15 ALT 46 U/L (12-78) 06/16/18 23:15 Alkaline Phosphatase 96 U/L (45-117) D 06/16/18 23:15 Total Protein 7.8 g/dl (6.4-8.2) 06/16/18 23:15 Albumin 4.1 g/dl (3.4-5.0) 06/16/18 23:15 Current Medications Generic Name Dose Route Start Last Admin Trade Name Connor PRN Reason Stop Dose Admin Acetaminophen 650 mg 06/17/18 17:37 06/18/18 13:00 Tylenol - PO 650 mg Q4H PRN Administration PAIN LEVEL 1-5 Ceftriaxone Sodium 2 gm/ 100 mls @ 200 mls/hr 06/17/18 10:00 06/19/18 11:09 Dextrose IVPB 200 mls/hr DAILY KHANH Administration Protocol Metronidazole 500 mg in 100 mls @ 100 mls/hr 06/17/18 12:00 06/19/18 10:12 Flagyl 500mg Premixed Ivpb - IVPB 100 mls/hr Q8H-IV KHANH Administration Lactobacillus Acidophilus 1 tab 06/17/18 22:00 08/04/18 10:11 Bacid - PO 1 tab BID KHANH Administration Polyethylene Glycol 17 gm 06/17/18 10:00 06/19/18 10:12 Miralax (For Daily Use) - PO 17 gm DAILY KHANH Administration Tramadol HCl 25 mg 06/18/18 07:19 06/19/18 05:45 Ultram - PO 25 mg Q6H PRN Administration PAIN LEVEL 6-10 Home Medications Medication Instructions Recorded Acetaminophen [Tylenol .Regular 650 mg PO Q4H PRN tablet 06/19/18 Strength -] Lactobacillus Acidophilus [Bacid -] 1 tab PO BID #60 tab 06/19/18 Polyethylene Glycol 3350 [Miralax 17 gm PO DAILY PRN #1 bottle 06/19/18 119 gm Btl -] levoFLOXacin [Levaquin -] 500 mg PO DAILY #7 tablet 06/19/18 US GALLBLADDER: Mildly fatty and borderline enlarged liver. Multiple gallstones without definite secondary findings of cholecystitis. HOSPITAL COURSE: Date of Admission:06/17/18 Date of Discharge: 06/19/18 Patient is 22 year old female with no pmhx presents for RUQ abdominal pain and flank pain, admitted for the treatment of pyelonephritis #Acute Pyelonephritis: s/p Iv antibiotic Rocephin 2gm daily will continue will Levaquin since sensitivity is back and sensitive to levaquin , continue Bacid 2x per day. culture positive for E.coli sensitive to LevAQUIN #Cholelithiasis: US positive for gallstones, no pain at this time , follow up with a surgeon , Referred to and was suggested to eat neo fat and low carbohydrate diet. #Irregular menstrual periods: LKMP May 05, Precision Inspector consulted follow with her own MACHINE REPAIRER MAINTENANCE as an outpatient if needed. 45 minutes to discharge Minutes to complete discharge: 45 Discharge Summary Reason For Visit: ACUTE PYELONEPHRITIS Current Active Problems Acute pyelonephritis (Acute) Cholelithiasis (Acute) Condition: Fair - Instructions Diet, Activity, Other Instructions: Follow with surgeon in 2 weeks for evaluation of gallstones follow low fat low carbohydrate diet. complete your antibiotic and you were prescribed Lactobaccilus, please keep taking it. Referrals: Rachid Pereira MD [Staff Physician] - 2 Weeks Marichuy Ma RES [Resident] - 1 Week - Home Medications Comprehensive Discharge Medication List: Ambulatory Orders NK [No Known Home Medication] 06/05/18 This patient is new to me today: No Emergency Visit: Yes ED Registration Date: 06/17/18 Care time: The patient presented to the Emergency Department on the above date and was hospitalized for further evaluation of their emergent condition. Critical Care patient: No - Discharge Referral Referred to [facility] Med P.C.: No
[2018-06-19 12:47] VITALS: BP 106/73; PULSE 88; TEMP 98.6
== END 2018-06-19 13:30 | disposition home or self-care (01) | DRG 463 ==
LOC: JER 21:06 → JERBED 06-17 01:18 → UNDOADMIN 06-17 01:26 → J8W 06-17 02:15
PROVIDERS: ADMIT Internal Medicine; ATTEND Internal Medicine
DX: N39.0 Urinary tract infection, site not specified (principal); K80.20 Calculus of gallbladder without cholecystitis without obstruction; N92.6 Irregular menstruation, unspecified; E66.8 Other obesity; Z68.31 Body mass index [BMI] 31.0-31.9, adult; F17.210 Nicotine dependence, cigarettes, uncomplicated; R16.0 Hepatomegaly, not elsewhere classified; B96.20 Unspecified Escherichia coli [E. coli] as the cause of diseases classified elsewhere; R50.9 Fever, unspecified; D72.829 Elevated white blood cell count, unspecified
CPT/HCPCS: 36415; 76705-TC; 80048; 80053; 81003; 81015; 83735; 84100; 84703; 85025; 85027; 85610; 86850; 86900; 86901; 87040; 87086; 87186; 99281-25; J7030

== ENCOUNTER 2019-02-22 15:48 | Emergency (ER) | payer OTHER ==
[2019-02-22] MEDS ORDERED: SODIUM CHLORIDE 1,000 ML IV STA (15:52)
[2019-02-22] MEDS ORDERED: ONDANSETRON 4 MG/2 ML VIAL IVPUSH ONE (15:52)
--- NOTE | 2019-02-22 15:52 | PDOC ---
Rapid Medical Evaluation Time Seen by Provider: 02/22/19 15:50 Medical Evaluation: Allergies Allergy/AdvReac Type Severity Reaction Status Date / Time No Known Allergies Allergy Verified 02/22/19 15:50 02/22/19 15:50 I have performed a brief in-person evaluation of this patient. The patient presents with a chief complaint of: RUQ pain Pertinent physical exam findings: RUQ tenderness I have ordered the following: urine, labs, sono The patient will proceed to the ED for further evaluation. Discharge Disposition - Diagnosis RUQ abdominal pain - Referrals - Patient Instructions - Post Discharge Activity
[2019-02-22 15:54] VITALS: BMI 36.8
--- NOTE | 2019-02-22 16:49 | PDOC ---
Attending Attestation - Resident Resident Name: Jorge Killian - HPI HPI: 02/22/19 17:20 The patient is a 23 year old female, (LMP "early last month"), with no significant past medical history, who presents to the emergency department with complaint of right upper abdominal pain for 2 days. She reports the pain is localized to her RUQ. She denies any lower abdominal pain. She denies vaginal discharge or bleeding. She denies any other symptoms. The patient denies chest pain, shortness of breath, headache and dizziness. The patient denies fever, chills, nausea, vomit, diarrhea and constipation. The patient denies dysuria, frequency, urgency and hematuria. Allergies: NKDA - Physicial Exam PE: 02/22/19 17:22 GENERAL: Awake, alert, and fully oriented, in no acute distress HEAD: No signs of trauma EYES: PERRLA, EOMI, sclera anicteric, conjunctiva clear ENT: Auricles normal inspection, hearing grossly normal, nares patent, oropharynx clear without exudates. Moist mucosa NECK: Normal ROM, supple, no lymphadenopathy, JVD, or masses LUNGS: Breath sounds equal, clear to auscultation bilaterally. No wheezes, and no crackles HEART: Regular rate and rhythm, normal S1 and S2, no murmurs, rubs or gallops ABDOMEN: (+) RUQ tenderness without guarding or rebound. No sonographic murpheys sign. Soft, nontender, normoactive bowel sounds. No masses EXTREMITIES: Normal range of motion, no edema. No clubbing or cyanosis. No cords, erythema, or tenderness NEUROLOGICAL: Cranial nerves II through XII grossly intact. Normal speech, normal gait SKIN: Warm, Dry, normal turgor, no rashes or lesions noted. <Shauna Piña - Last Filed: 02/22/19 17:20> - Medical Decision Making 02/22/19 18:29 Pt presents to the ED complaining of RUQ pain for two days similar to previous RUQ pain. + test. Differential includes cholelithiasis, less likely cholecystitis, ectopic , unlikely renal stone. Will check labs and LFTs, bhcg. Will check RUQ and transvaginal US. <Kelly Queen - Last Filed: 02/22/19 18:33> Attestations - Attestations 02/22/19 17:24 Documentation prepared by Shauna Piña, acting as senior medical transcriptionist for Kelly Queen MD <Shauna Piña - Last Filed: 02/22/19 17:20>
--- NOTE | 2019-02-22 17:45 | PDOC ---
History of Present Illness - General Chief Complaint: Pain Stated Complaint: LOWER ABD PAIN Time Seen by Provider: 02/22/19 15:50 - History of Present Illness Initial Comments: 02/22/19 17:44 23f [id number] presents to the ED for URQ abdominal pain for the past 3 days. She has been found to have cholelithisis in the past with multiple stones with biliary cholics but didn't have insurance at the time to get surgery. Incidentally found out she was with at home test just before coming to the ED today. Past History - Past Medical History Allergies/Adverse Reactions: Allergies Allergy/AdvReac Type Severity Reaction Status Date / Time No Known Allergies Allergy Verified 02/22/19 15:50 Home Medications: Ambulatory Orders Acetaminophen [Tylenol .Regular Strength -] 650 mg PO Q4H PRN tablet 06/19/18 Lactobacillus Acidophilus [Bacid -] 1 tab PO BID #60 tab 06/19/18 Polyethylene Glycol 3350 [Miralax 119 gm Btl -] 17 gm PO DAILY PRN #1 bottle 03/03 levoFLOXacin [Levaquin -] 500 mg PO DAILY #7 tablet 06/19/18 Nitrofurantoin Monohyd/M-Cryst [Macrobid -] 100 mg PO BID #14 capsule 02/22/19 GI Disorders: Yes (GALLSTONES) Disorders: Yes (RECURRENT UTIs) - Suicide/Smoking/Psychosocial Hx Smoking History: Current every day smoker Have you smoked in the past 12 months: Yes Number of Cigarettes Smoked Daily: 20 Information on smoking cessation initiated: Yes 'Breaking Loose' booklet given: 06/17/18 Hx Alcohol Use: No Drug/Substance Use Hx: No Substance Use Type: Alcohol Hx Substance Use Treatment: No Review of Systems - Review of Systems Able to Perform ROS?: Yes Is the patient limited Martiniquais proficient: No Constitutional: No: Symptoms Reported HEENTM: No: Symptoms Reported Respiratory: No: Symptoms reported Cardiac (ROS): No: Symptoms Reported ABD/GI: Yes: See HPI : No: Symptoms Reported Musculoskeletal: No: Symptoms Reported Integumentary: No: Symptoms Reported *Physical Exam - Vital Signs Last Vital Signs Temp Pulse Resp BP Pulse Ox 97.7 F 81 18 111/65 98 02/22/19 15:50 02/22/19 15:50 02/22/19 15:50 02/22/19 15:50 02/22/19 15:50 - Physical Exam General Appearance: Yes: Nourished, Appropriately Dressed. No: Apparent Distress HEENT: positive: EOMI, ADAM Respiratory/Chest: positive: Lungs Clear, Normal Breath Sounds. negative: Chest Tender Cardiovascular: positive: Regular Rhythm, Regular Rate, S1, S2 Gastrointestinal/Abdominal: positive: Normal Bowel Sounds, Tender (URQ), Soft Musculoskeletal: positive: Normal Inspection. negative: CVA Tenderness Extremity: positive: Normal Capillary Refill, Normal Inspection, Normal Range of Motion Neurologic: positive: Fully Oriented, Alert, Normal Mood/Affect, Normal Response , Motor Strength 03/20 ED Treatment Course - LABORATORY CBC & Chemistry Diagram: 02/22/19 18:30 02/22/19 18:30 - RADIOLOGY Radiology Studies Ordered: Category Date Time Status TRANSVAGINAL US PREG [US] Stat Ultrasound 02/22/19 16:55 Ordered Medical Decision Making - Medical Decision Making 02/22/19 19:43 23f with h/o biliary colic and stones presneting with URQ pain TVUS: A few initial transabdominal images were obtained. The uterus is gravid measuring 9.6 x 5 cm in sagittal and AP dimension. An intrauterine gestation sac is present with a mean sac diameter of 1.1 cm compatible with 5 weeks 6 days of gestation. A tiny yolk sac is identified. No pole is present. Normal-appearing left ovary measuring 3.5 x 1.6 cm with normal arterial flow documented. Normal-appearing right ovary measuring 4 x 2.9 cm with normal arterial flow documented. There is no free fluid in the cul-de-sac Gallbladder US: Hepatomegaly. Contracted gallbladder filled with stones without wall thickening or pericholecystic free fluid. 02/22/19 20:01 Patient asking to leave and follow up outpatient. 02/22/19 20:[address] Bhandari for OBGYN *DC/Admit/Observation/Transfer Diagnosis at time of Disposition: RUQ abdominal pain, Biliary colic, - Discharge Dispostion Disposition: HOME Decision to Admit order: No - Prescriptions Prescriptions: Nitrofurantoin Monohyd/M-Cryst [Macrobid -] 100 mg PO BID #14 capsule - Referrals Referrals: Shaina Bhandari DO [Staff Physician] - - Patient Instructions Printed Discharge Instructions: DI for Gallstones Additional Instructions: Come back to the emergency department for any new, worsening or concerning symptoms. Follow up with your primary care provider and sheepskin pickler your antibiotics at the pharmacy. Follow up with OBGYN Dr. Bhandari. - Post Discharge Activity
[2019-02-22 18:54] LABS: BASO % 0.8 % (0-2.0); EOS % 2.3 % (0-4.5); HEMATOCRIT 39.2 % (32.4-45.2); HEMOGLOBIN 13.5 GM/dL (10.7-15.3); LYMPH % 31.5 % (8-40); MCH 33.5 pg (25.7-33.7); MCHC 34.4 g/dl (32.0-36.0); MEAN CELL VOLUME 97.4 fl (80-96); MEAN PLT VOLUME 7.4 fl (7.5-11.1); MONO % 8.1 % (3.8-10.2); NEUT % 57.3 % (42.8-82.8); PLATELET COUNT 405 K/MM3 (134-434); RBC 4.02 M/mm3 (3.60-5.2); RDW 12.9 % (11.6-15.6)
[2019-02-22 19:09] LABS: INR 1.01 (0.83-1.09); PROTHROMBIN TIME (PATIENT) 11.9 SEC (9.7-13.0)
[2019-02-22 19:21] LABS: ALBUMIN 3.8 g/dl (3.4-5.0); ALK PHOS 64 U/L (45-117); ANION GAP 6 MMOL/L (8-16); BILIRUBIN,TOTAL 0.1 mg/dL (0.2-1); BLOOD UREA NITROGEN 7 mg/dL (7-18); CALCIUM 8.2 mg/dL (8.5-10.1); CHLORIDE 106 mmol/L (98-107); CO2 28 mmol/L (21-32); CREATININE 0.7 mg/dL (0.55-1.3); GLUCOSE,RANDOM 91 mg/dL (74-106); LIPASE 262 U/L (73-393); POTASSIUM 4.1 mmol/L (3.5-5.1); SGOT/AST 13 U/L (15-37); SGPT/ALT 26 U/L (13-61); SODIUM 140 mmol/L (136-145); TOT PROT 6.8 g/dl (6.4-8.2)
[2019-02-22 19:23] LABS: EPI CELLS 9.8 /HPF (0-5/HPF); PH,URINE >= 9.0 (5.0-8.0); URINE APPEARANCE TURBID; URINE BACTERIA 4131.9 /hpf (NEGATIVE); URINE BILIRUBIN NEGATIVE (NEGATIVE); URINE CASTS 4 /hpf (0-8); URINE COLOR YELLOW; URINE GLUCOSE (UA) NEGATIVE (NEGATIVE); URINE KETONE NEGATIVE (NEGATIVE); URINE LEUK ESTERASE 1+ (NEGATIVE); URINE NITRITE POSITIVE (NEGATIVE); URINE PROTEIN NEGATIVE (NEGATIVE); URINE RBC 3 /hpf (0-4); URINE WBC 14 /hpf (0-5)
[2019-02-22] MEDS ORDERED: ONDANSETRON 4 MG/2 ML VIAL ONE (19:46)
[2019-02-22] MEDS ORDERED: NITROFURANTOIN MACROCRYSTAL 50 MG CAPSULE (FP) PO SCH (20:00)
[2019-02-22] MEDS ORDERED: NITROFURANTOIN MACROCRYSTAL 50 MG CAPSULE (FP) ONE (20:03)
[2019-02-22 20:36] VITALS: BP 112/59; PULSE 68; TEMP 98.2
--- NOTE | 2019-02-23 11:05 | EKG ---
Test Reason : Blood Pressure : / mmHG Vent. Rate : 071 BPM Atrial Rate : 071 BPM P-R Int : 208 ms QRS Dur : 084 ms QT Int : 420 ms P-R-T Axes : 057 074 065 degrees QTc Int : 456 ms NORMAL SINUS RHYTHM T WAVE ABNORMALITY, CONSIDER ANTERIOR ISCHEMIA ABNORMAL ECG NO PREVIOUS ECGS AVAILABLE Confirmed by SUAD MERRITT MD ([id number]) on 02/23/2019 11:05:45 AM Referred By: Confirmed By:SUAD MERRITT MD
== END 2019-02-22 20:36 | disposition home or self-care (01) ==
LOC: JER 15:48
DX: O26.891 Other specified pregnancy related conditions, first trimester (principal); O99.611 Diseases of the digestive system complicating pregnancy, first trimester; K80.80 Other cholelithiasis without obstruction; Z3A.01 Less than 8 weeks gestation of pregnancy
CPT/HCPCS: 36415; 76705-TC; 76817-TC; 80053; 81003; 83690; 84702; 85025; 85610; 86850; 86900; 86901; 87086; 87186; 93005; 93010; 99282-25

== ENCOUNTER 2019-08-25 23:32 | Emergency (ER) | payer OTHER ==
[2019-08-26 00:57] VITALS: TEMP 98.3
--- NOTE | 2019-08-26 00:59 | PDOC ---
History of Present Illness - General Chief Complaint: Pain Stated Complaint: ABD PAIN Time Seen by Provider: 08/26/19 00:59 History Source: Patient Exam Limitations: No Limitations - History of Present Illness Initial Comments: 08/26/19 02:27 Batsheva Long is a 23yF w PMHx cholelithiasis, 32wk presenting with RUQ pain. Worsening intermittent RUQ pain last 3 days. Did not take any meds for pain. Went to L&D today, NST reactive, category 1 tracing. Diagnosed with cholelithiasis 1yr ago w intermitten RUQ pain. Plan with obgyn was to remove gallbladder after . No complications. Denies fever, cough, SOB, chest pain, urinary/bowel movement changes. [facility] Past History - Past Medical History Allergies/Adverse Reactions: Allergies Allergy/AdvReac Type Severity Reaction Status Date / Time No Known Allergies Allergy Verified 08/26/19 01:01 Home Medications: Ambulatory Orders Acetaminophen [Tylenol .Regular Strength -] 650 mg PO Q4H PRN tablet 06/19/18 GI Disorders: Yes (GALLSTONES) Disorders: Yes (RECURRENT UTIs) - Psycho Social/Smoking Cessation Hx Smoking History: Current every day smoker Have you smoked in the past 12 months: Yes Number of Cigarettes Smoked Daily: 20 'Breaking Loose' booklet given: 06/17/18 Hx Alcohol Use: No Drug/Substance Use Hx: No Substance Use Type: Alcohol Hx Substance Use Treatment: No Review of Systems - Review of Systems Constitutional: No: Chills, Fever HEENTM: No: Eye Pain, Nose Pain, Throat Pain, Mouth Pain Respiratory: No: Cough, Shortness of Breath Cardiac (ROS): No: Chest Pain, Palpitations, Syncope ABD/GI: No: Abdominal Distended, Constipated, Diarrhea, Nausea, Vomiting : No: Burning, Dysuria, Discharge, Flank Pain, Hematuria Musculoskeletal: No: Back Pain, Joint Pain, Muscle Weakness Integumentary: No: Bruising, Flushing, Lesions Neurological: No: Headache, Seizure, Tingling, Tremors Psychiatric: No: Anxiety, Depression, Stressors Endocrine: No: Excessive Sweating, Flushing, Intolerance to Cold, Intolerance to Heat Hematologic/Lymphatic: No: Anemia, Blood Clots *Physical Exam - Vital Signs Last Vital Signs Temp Pulse Resp BP Pulse Ox 98.3 F 76 18 104/53 L 08/25/19 23:52 08/25/19 23:52 08/25/19 23:52 08/25/19 23:52 - Physical Exam General Appearance: Yes: Nourished, Appropriately Dressed. No: Apparent Distress HEENT: positive: EOMI, ADAM, Normal Voice, Hearing Grossly Normal. negative: Scleral Icterus (R), Scleral Icterus (L), Nasal Congestion, Rhinorrhea Respiratory/Chest: positive: Lungs Clear, Normal Breath Sounds. negative: Chest Tender, Respiratory Distress, Crackles, Rales, Rhonchi, Stridor, Wheezing Cardiovascular: positive: Regular Rhythm, Regular Rate, S1, S2. negative: Edema , Murmur Gastrointestinal/Abdominal: positive: Normal Bowel Sounds, Tender (mild RUQ), Soft, Distended (). negative: Guarding, Rebound Musculoskeletal: negative: CVA Tenderness (R), CVA Tenderness (L) Extremity: positive: Normal Capillary Refill Integumentary: positive: Normal Color Neurologic: positive: Fully Oriented, Alert, Normal Mood/Affect, Normal Response , Responsive. negative: Sensory Deficit, Confused, Disoriented ED Treatment Course - LABORATORY CBC & Chemistry Diagram: 08/26/19 01:55 08/26/19 01:55 Medical Decision Making - Medical Decision Making 08/26/19 02:31 CBC CMP normal RUQ US shows gallbladder filled w stones w/o evidence of cholangitis. Bile duct not dilated. Borderline enlarged liver. tylenol for pain Batsheva Long is a 23yF w PMHx cholelithiasis, 32wk presenting with 3d worsening RUQ pain d/t cholelithiasis seen on RUQ US. Given tylenol for pain. Went to L&D earlier yesterday, NST reactive, category 1 tracing. D/c home w obgyn f/u Discharge - Discharge Information Problems reviewed: Yes Clinical Impression/Diagnosis: Biliary colic Condition: Stable Disposition: HOME - Follow up/Referral Referrals: Rachid Pereira MD [Staff Physician] - Abhinav Tomas MD [Staff Physician] - - Patient Discharge Instructions Patient Printed Discharge Instructions: Common Discomforts and Bodily Changes During , DI for -- Discomforts and Remedies, DI for Biliary Colic Additional Instructions: Thanks for coming in to the ER today Return to the emergency department immediately with ANY new, persistent or worsening symptoms. Continue any medications as previously prescribed by your physician. You should follow up with your furniture fabricator as soon as possible regarding today' s emergency department visit. You should also follow up with the surgeon your were seeing for your gall bladder Please make sure your doctor reviews the results of your emergency evaluation. Thank you for coming to the Emergency Department today for your care. It was a pleasure to see you today. Please note that your evaluation is INCOMPLETE until you follow-up with your doctor. Discharged to the ED for evaluation and treatment of RUQ pain symptoms. Follow up with your OB as scheduled. Return to labor and delivery if You start to have contractions Your water breaks You have any vaginal bleeding You do not feel the baby moving - Post Discharge Activity Work/Back to School Note: Back to Work
[2019-08-26 01:01] VITALS: BP 110/62; PULSE 78; BMI 34.9
[2019-08-26 02:15] LABS: BASO % 0.7 % (0-2.0); EOS % 3.7 % (0-4.5); HEMATOCRIT 33.2 % (32.4-45.2); HEMOGLOBIN 11.2 GM/dL (10.7-15.3); LYMPH % 31.3 % (8-40); MCH 32.2 pg (25.7-33.7); MCHC 33.7 g/dl (32.0-36.0); MEAN CELL VOLUME 95.5 fl (80-96); MEAN PLT VOLUME 7.5 fl (7.5-11.1); MONO % 7.8 % (3.8-10.2); NEUT % 56.5 % (42.8-82.8); PLATELET COUNT 398 K/MM3 (134-434); RBC 3.48 M/mm3 (3.60-5.2); RDW 12.3 % (11.6-15.6)
--- NOTE | 2019-08-26 02:24 | PDOC ---
Attending Attestation - Resident Resident Name: ShannanWaldemar - ED Attending Attestation I have performed the following: I have examined & evaluated the patient, The case was reviewed & discussed with the resident, I agree w/resident's findings & plan, Exceptions are as noted - HPI HPI: 08/26/19 02:22 Ms He is a 23 yo F who presents to the ER with a complaint of RUQ abdominal pain She is 36 weeks She has a known history of biliary colic Presents with 1 week of abdominal pain which is intermittent She has had nausea and vomiting, unsure if this is related to No fevers or chills No diarrhea - Physicial Exam PE: 08/26/19 02:23 GENERAL: The patient is in no acute distress, speaking on the phone . ENT: Ears normal, nares patent, oropharynx clear without exudates. NECK: Normal range of motion, supple LUNGS: Breath sounds equal, clear to auscultation bilaterally. No wheezes, and no crackles. HEART: Regular rate and rhythm, normal S1 and S2 without murmur, rub or gallop. ABDOMEN: Gravid abdomen, NO RUQ tenderness to palpation EXTREMITIES: Normal range of motion, no edema. NEUROLOGICAL: Cranial nerves II through XII grossly intact. Normal speech. No focal neurological deficits. SKIN: Warm, Dry, normal turgor, no rashes or lesions noted. - Medical Decision Making 08/26/19 02:24 Pt was already sent to L&D for assessment FHR re assuring Laboratory Tests 08/26/19 01:55 WBC 11.0 H Hgb 11.2 Hct 33.2 D Plt Count 398 U/S pending 08/26/19 03:18 THIS IS A PRELIMINARY REPORT FROM [facility] DATE OF SERVICE: 2019-08-26 01:23:50 IMAGES: 46 EXAM: ABDOMEN US -LIMITED , right upper quadrant and limited abdominal duplex HISTORY: Right upper quadrant pain COMPARISON: None. FINDINGS: Right upper quadrant ultrasound:The liver is borderline enlarged at 17.3 cm, without mass or biliary duct dilation. The gallbladder is filled with stones without definite secondary findings of cholecystitis. The CBD is not dilated and measures5 millimeters in diameter. Right kidney measures 9.9centimeters in length and is unremarkable. The visualized aorta and IVC are normal. Pancreas is partially obscured, but appears normal. Abdominal duplex: The main portal vein demonstrate normal hepatopedal flow. IMPRESSION: Borderline hepatomegaly. Gallbladder filled with stones without definite secondary findings of cholecystitis Will plan to discharge to home Pain has resolved Pt OB in [place] Pt to follow up tomorrow Discharge - Discharge Information Problems reviewed: Yes Clinical Impression/Diagnosis: Biliary colic Condition: Stable Disposition: HOME - Admission No - Follow up/Referral Referrals: Abhinav Tomas MD [Staff Physician] - Rachid Pereira MD [Staff Physician] - - Patient Discharge Instructions Patient Printed Discharge Instructions: Common Discomforts and Bodily Changes During , DI for -- Discomforts and Remedies, DI for Biliary Colic Additional Instructions: Thanks for coming in to the ER today Return to the emergency department immediately with ANY new, persistent or worsening symptoms. Continue any medications as previously prescribed by your physician. You should follow up with your furnace builder as soon as possible regarding today' s emergency department visit. You should also follow up with the surgeon your were seeing for your gall bladder Please make sure your doctor reviews the results of your emergency evaluation. Thank you for coming to the Emergency Department today for your care. It was a pleasure to see you today. Please note that your evaluation is INCOMPLETE until you follow-up with your doctor. Discharged to the ED for evaluation and treatment of RUQ pain symptoms. Follow up with your OB as scheduled. Return to labor and delivery if You start to have contractions Your water breaks You have any vaginal bleeding You do not feel the baby moving - Post Discharge Activity Work/Back to School Note: Back to Work
[2019-08-26 02:59] LABS: ALBUMIN 2.5 g/dl (3.4-5.0); BILIRUBIN,TOTAL 0.2 mg/dL (0.2-1); BLOOD UREA NITROGEN 5.3 mg/dL (7-18); CALCIUM 8.3 mg/dL (8.5-10.1); CREATININE 0.6 mg/dL (0.55-1.3); POTASSIUM 3.5 mmol/L (3.5-5.1); TOT PROT 5.5 g/dl (6.4-8.2)
[2019-08-26] MEDS ORDERED: ACETAMINOPHEN 325 MG TABLET (FP) PO ONE (03:06)
[2019-08-26] MEDS ORDERED: ACETAMINOPHEN 325 MG TABLET (FP) ONE (03:11)
== END 2019-08-26 03:42 | disposition home or self-care (01) ==
LOC: JER 23:32
DX: O26.893 Other specified pregnancy related conditions, third trimester (principal); O99.613 Diseases of the digestive system complicating pregnancy, third trimester; K80.70 Calculus of gallbladder and bile duct without cholecystitis without obstruction; Z3A.32 32 weeks gestation of pregnancy; Z87.440 Personal history of urinary (tract) infections
CPT/HCPCS: 36415; 76705-TC; 80053; 82248; 85025; 99283-25

== ENCOUNTER 2023-02-05 10:54 | Emergency (ER) | payer OTHER ==
[2023-02-05 11:13] VITALS: BP 143/66; PULSE 77; RESP 18; TEMP 98.9; BMI 36.0
[2023-02-05] MEDS ORDERED: SODIUM CHLORIDE 0.9% 500 ML INFUS.BAG IV ONE (12:02)
[2023-02-05] MEDS ORDERED: FAMOTIDINE 20 MG/50 ML IVPB 20 MG/50 ML MG IVPB ONE ×2 (12:03→12:15)
[2023-02-05] MEDS ORDERED: ONDANSETRON 4 MG/2 ML VIAL IVPUSH ONE (12:03)
[2023-02-05] MEDS ORDERED: MAG HYDROX/AL HYDROX/SIMETH 30 ML UNIT-DOSE CUP PO ONE (12:11)
[2023-02-05] MEDS ORDERED: MAG HYDROX/AL HYDROX/SIMETH 30 ML UNIT-DOSE CUP ONE (12:15)
[2023-02-05] MEDS ORDERED: ONDANSETRON 4 MG/2 ML VIAL ONE (12:15)
[2023-02-05 12:36] LABS: BASO % 0.9 % (0-2.0); EOS % 2.9 % (0-4.5); HEMATOCRIT 43.5 % (32.4-45.2); HEMOGLOBIN 14.8 GM/dL (10.7-15.3); LYMPH % 35.1 % (8-40); MCH 32.4 pg (25.7-33.7); MEAN CELL VOLUME 95.3 fl (80-96); MEAN PLT VOLUME 7.1 fl (7.5-11.1); NEUT % 52.1 % (42.8-82.8); PLATELET COUNT 394 10^3/uL (134-434); RBC 4.57 M/mm3 (3.60-5.2); RDW 12.6 % (11.6-15.6)
[2023-02-05 13:03] LABS: CALCIUM 8.4 mg/dL (8.5-10.1)
[2023-02-05 13:04] LABS: BLOOD UREA NITROGEN 6.5 mg/dL (7-18); MAGNESIUM 2.2 mg/dL (1.8-2.4)
[2023-02-05 13:06] LABS: CREATININE 0.7 mg/dL (0.55-1.3)
[2023-02-05 13:08] LABS: BILIRUBIN,TOTAL 0.4 mg/dL (0.2-1); TOT PROT 7.3 g/dl (6.4-8.2)
[2023-02-05 15:48] LABS: EPI CELLS 34 /uL (0-25.1); HCG,QUALITATIVE URINE Negative; HYALINE CASTS 0 /uL (0-3.1); PH,URINE 5.5 (5.0-8.0); URINE APPEARANCE CLEAR; URINE BACTERIA 514 /uL (0-1359); URINE BILIRUBIN NEGATIVE (NEGATIVE); URINE COLOR YELLOW; URINE GLUCOSE (UA) NEGATIVE (NEGATIVE); URINE KETONE 1+ (NEGATIVE); URINE LEUK ESTERASE TRACE (NEGATIVE); URINE NITRITE NEGATIVE (NEGATIVE); URINE PROTEIN NEGATIVE (NEGATIVE); URINE RBC 26 /uL (0-23.9); URINE WBC 16 /uL (0-25.8)
== END 2023-02-05 15:06 | disposition home or self-care (01) ==
LOC: JER 10:54
PROC: 3E033GC Introduction of Other Therapeutic Substance into Peripheral Vein, Percutaneous Approach (ICD-10-PCS; principal; 2023-02-05)
PROC: 3E033GC Introduction of Other Therapeutic Substance into Peripheral Vein, Percutaneous Approach (ICD-10-PCS; 2023-02-05)
DX: R94.5 Abnormal results of liver function studies (principal); R10.13 Epigastric pain
CPT/HCPCS: 36415; 76705-TC; 80053; 81003; 83690; 83735; 84703; 85025; 87086; 87186; 99284-25